=== PATIENT | male | born 1980 | race Caucasian/White ===

== ENCOUNTER 2017-06-12 10:28 | Emergency (ER) | payer OTHER, BC ==
[~2017-06-12 10:28] MED LIST: AMOX-362 PO; HYDR-385 PO
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
[2017-06-12] MEDS ORDERED: PANT40TA65 PO (10:39)
[2017-06-12] MEDS ORDERED: SIMV-49 PO (10:39)
[2017-06-12] MEDS ORDERED: LISI-362 PO (10:39)
[2017-06-12] MEDS ORDERED: HYDR-2966 PO (10:39)
[2017-06-12] MEDS ORDERED: DIPHTH/TETANUS/ACEL. PERTUSSIS IM ONLY ONE (10:55)
[2017-06-12] MEDS ORDERED: IBUPROFEN 600 MG TAB TH PO ONE (11:35)
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
[2017-06-12 12:35] VITALS: BP 142/109
== END 2017-06-12 12:38 | disposition home or self-care (01) ==
LOC: ER 10:30
DX: G44.319 Acute post-traumatic headache, not intractable (principal); S20.212A Contusion of left front wall of thorax, initial encounter
CPT/HCPCS: 70450; 90471; 90715; 99283

== ENCOUNTER 2018-04-20 08:22 | Emergency (ER) | payer BC, OTHER ==
[~2018-04-20 08:22] MED LIST changes: +HYDR-2966 PO; +LISI-362 PO; +PANT40TA65 PO; +SIMV-49 PO
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
[2018-04-20] MEDS ORDERED: ALBUTEROL/IPRATROPIUM 3 ML NEB NEB ONE (08:40)
[2018-04-20] MEDS ORDERED: DEXAMETHASONE SOD PHOS 10MG/ML IVP ONE (08:40)
[2018-04-20] MEDS ORDERED: NS(*) 0.9% 1000 ML BAG 1,000 ML IV ONE (08:40)
[2018-04-20] MEDS ORDERED: KETOROLAC 30 MG/ML VIAL IVP ONE (08:40)
[2018-04-20 09:33] VITALS: BP 136/103
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
== END 2018-04-20 10:17 | disposition home or self-care (01) ==
LOC: ER 08:35
DX: B34.9 Viral infection, unspecified (principal)
CPT/HCPCS: 71046; 87502; 94640; 96361; 96374; 96375; 99284; J1100; J1885; J7030; J7620